=== PATIENT | male | born 1955 | race Caucasian/White ===

== ENCOUNTER 2022-11-14 09:29 | Outpatient (CLI) | payer MEDICARE ==
[2022-11-14] MEDS ORDERED: Iopamidol 370 76% 100 ML VIAL ONE (10:04)
== END 2022-11-14 09:30 | disposition home or self-care (01) ==
LOC: CSHCT 09:29
PROVIDERS: ATTEND Family Medicine
DX: K42.0 Umbilical hernia with obstruction, without gangrene (principal); K42.9 Umbilical hernia without obstruction or gangrene
CPT/HCPCS: 74160; 82565